=== PATIENT | male | born 1985 ===

== ENCOUNTER 2016-11-26 21:02 | Emergency (ER) | payer OTHER ==
[~2016-11-26] VITALS: Ht 182.9 cm; Wt 89.0 kg
[2016-11-26 21:09] VITALS: Ht 182.9 cm; Wt 89.0 kg
[2016-11-26] MEDS ORDERED: CEPH-443 PO (21:42)
[2016-11-26] MEDS ORDERED: NAPR-688 PO (21:42)
[2016-11-26] MEDS ORDERED: BACTDS PO (21:42)
--- NOTE | 2016-11-26 22:07 | ERD ---
ER Documentation Chief Complaint Date/Time DATE: 11/26/16 TIME: 21:55 Chief Complaint med clearance for booking; in custody, mult. abscesses hands, face 2wks HPI This 31-year-old male presents the ER for sore on his face and his left hand. He is in police custody. States that these have been going on for about a week both of them. He believes 1 of the hand is from picking. He says he impulsively picks at his hand. Says he actually has had a facial sore for quite some time but he gets exacerbated when he has an abscess somewhere else on his body. Denies any fevers or chills. States that the source caused him only mild pain pain. denies having other underlying medical conditions such as diabetes. ROS All systems reviewed and are negative except as per history of present illness. Medications Home Meds Active Scripts Naproxen* (Naproxen*) 500 Mg Tablet, 500 MG PO BID Y for PAIN, #20 TAB Prov:DAMIEN MITCHELL DO 11/26/16 Cephalexin* (Keflex*) 500 Mg Capsule, 500 MG PO QID for 10 Days, CAP Prov:DAMIEN MITCHELL DO 11/26/16 Sulfamethoxazole-Trimethoprim* (Bactrim* DS) 800-160 Mg Tab, 1 TAB PO BID for 10 Days, TAB Prov:DAMIEN MITCHELL DO 11/26/16 Allergies Allergies: Coded Allergies: No Known Drug Allergies (Verified Allergy, Unknown, 11/26/16) PMhx/Soc Medical and Surgical Hx: pt denies Medical Hx, pt denies Surgical Hx Hx Alcohol Use: No Hx Substance Use: Yes Hx Tobacco Use: Yes Smoking Status: Current every day smoker Physical Exam Vitals Vital Signs Date Time Temp Pulse Resp B/P Pulse Ox O2 Delivery O2 Flow Rate FiO2 11/26/16 21:09 98.0 92 20 134/74 100 Physical Exam Const: [] No distress Head: Atraumatic Eyes: Normal Conjunctiva ENT: Normal External Ears, Nose and Mouth. Right cheek with erythematous area with central ulceration approximately 2 x 2 centimeters and a centimeter surrounding erythema. Cheek is swollen without any fluctuance. Palpation causes only minimal pain to the patient. Very slight calor. Neck: Full range of motion..~ No meningismus. Resp: Clear to auscultation bilaterally Cardio: Regular rate and rhythm, no murmurs Ext: No cyanosis, or edema left wrist and lateral thenar area with 2 separate ulcerations that have the appearance of excoriations. There is approximately 1.5 x 1.5 cm. There is very mild surrounding erythema with no fluctuance. Distal pulses intact all 4 extremities. No calor Neur: Awake and alert oriented 3, no focal deficits Psych: Normal Mood and Affect Procedures/MDM Small areas of cellulitis in a patient says that he occasionally gets cellulitis and abscesses.. No apparent dental infections. No fluctuance or abscess is visible. Performed an ultrasound of his cheek areas it does appear swollen however there is no fluctuance and only has the appearance of cellulitis. We will discharge the patient on Bactrim Keflex and naproxen to complete a 10 day course. He states that he has had Bactrim and Keflex before and it has cleared up his condition in the past. I am discharging him with a list of primary care clinics as well as [facility] follow-up and told him that he really must see a doctor about this recurrent chronic problem. Also given return precautions to the ER if the treatment is not working properly if he develops fevers increasing pain or increasing swelling. Limited bedside ultrasound exam: Ultrasound of the left cheek area shows no fluid collection, appearance of mild cellulitis with inflamed soft tissue. Patient taught procedure well no complication. Images saved in patient chart. Departure Diagnosis: Primary Impression: Cellulitis, face Additional Impression: Cellulitis of hand, right Condition: Stable Patient Instructions: Cellulitis Referrals: [facility] YOU HAVE RECEIVED A MEDICAL SCREENING EXAM AND THE RESULTS INDICATE THAT YOU DO NOT HAVE A CONDITION THAT REQUIRES URGENT TREATMENT IN THE EMERGENCY DEPARTMENT. FURTHER EVALUATION AND TREATMENT OF YOUR CONDITION CAN WAIT UNTIL YOU ARE SEEN IN YOUR DOCTORS OFFICE WITHIN THE NEXT 1-2 DAYS. IT IS YOUR RESPONSIBILITY TO MAKE AN APPOINTMENT FOR FOLOW-UP CARE. IF YOU HAVE A PRIMARY DOCTOR --you should call your primary doctor and schedule an appointment IF YOU DO NOT HAVE A PRIMARY DOCTOR YOU CAN CALL OUR PHYSICIAN REFERRAL HOTLINE AT IF YOU CAN NOT AFFORD TO SEE A PHYSICIAN YOU CAN CHOSE FROM THE FOLLOWING [facility] [address] [facility]. [facility] [address] [facility] [facility] [address] [facility] [facility] [address] [facility]. [facility] [address] [facility]. [facility]. [address] [facility]. [facility] YOU HAVE RECEIVED A MEDICAL SCREENING EXAM AND THE RESULTS INDICATE THAT YOU DO NOT HAVE A CONDITION THAT REQUIRES URGENT TREATMENT IN THE EMERGENCY DEPARTMENT. FURTHER EVALUATION AND TREATMENT OF YOUR CONDITION CAN WAIT UNTIL YOU ARE SEEN IN YOUR DOCTORS OFFICE WITHIN THE NEXT 1-2 DAYS. IT IS YOUR RESPONSIBILITY TO MAKE AN APPOINTMENT FOR FOLOW-UP CARE. IF YOU HAVE A PRIMARY DOCTOR --you should call your primary doctor and schedule and appointment IF YOU DO NOT HAVE A PRIMARY DOCTOR YOU CAN CALL OUR PHYSICIAN REFERRAL HOTLINE AT . IF YOU CAN NOT AFFORD TO SEE A PHYSICIAN YOU CAN CHOSE FROM THE FOLLOWING [facility] INSTITUTIONS: [facility] [address] [place] [address] [facility] [address] [place] [address] [facility] [address] [place] [address] Additional Instructions: Call your primary care doctor TOMORROW for an appointment during the next 2-3 days.See the doctor sooner or return here if your condition worsens before your appointment time. DAMIEN MITCHELL DO Nov 26, 2016 22:06
[2016-11-26 22:20] VITALS: BP 123/73; PULSE 90; RESP 17; TEMP 98.7
== END 2016-11-26 22:21 | disposition home or self-care (01) ==
LOC: E/R 21:02
DX: L03.211 Cellulitis of face (principal); L03.113 Cellulitis of right upper limb; F17.210 Nicotine dependence, cigarettes, uncomplicated
CPT/HCPCS: 99284